=== PATIENT | female | born 1980 | race Caucasian/White ===

== ENCOUNTER 2016-12-02 08:08 | Day surgery (SDC) | payer OTHER ==
[2016-12-02 08:39] VITALS: BMI 28.3
[2016-12-02] MEDS ORDERED: Propofol 10 mg/ml Inj (20 ML) ONE (09:13)
[2016-12-02 09:35] VITALS: TEMP 98.4
[2016-12-02 09:45] VITALS: BP 97/76; PULSE 82; RESP 16; O2SAT 100
== END 2016-12-02 10:19 | disposition home or self-care (01) ==
LOC: C.ENDO 08:08
PROVIDERS: ATTEND Internal Medicine
DX: K29.60 Other gastritis without bleeding (principal); D13.0 Benign neoplasm of esophagus; K21.9 Gastro-esophageal reflux disease without esophagitis
CPT/HCPCS: 43239; 84703; 88305; J2001; J2704